=== PATIENT | male | born 1995 | race Caucasian/White ===

== ENCOUNTER 2017-04-28 04:45 | Emergency (ER) | payer SELFPAY ==
[~2017-04-28] VITALS: Ht 175.3 cm; Wt 61.4 kg
[~2017-04-28 04:45] MED LIST: SEROQUEL50 MG PO
[2017-04-28 04:47] VITALS: PULSE 100; TEMP 97.1
[2017-04-28] MEDS ORDERED: PERCOCET 325 MG1 TA2 PO (07:23)
[2017-04-28 08:23] VITALS: BP 127/76
== END 2017-04-28 08:25 | disposition home or self-care (01) ==
LOC: COL.ER 04:45
DX: S51.011A Laceration without foreign body of right elbow, initial encounter (principal); F17.210 Nicotine dependence, cigarettes, uncomplicated; Z23 Encounter for immunization; W00.0XXA Fall on same level due to ice and snow, initial encounter; Y92.009 Unspecified place in unspecified non-institutional (private) residence as the place of occurrence of the external cause
CPT/HCPCS: J0690; Q4050

== ENCOUNTER → 2018-05-13 | Emergency (ER) | payer SELFPAY ==
[~2018-05-13] VITALS: Ht 182.9 cm; Wt 75.0 kg
[~2018-05-13] MED LIST changes: +PERCOCET 325 MG1 TA2 PO
[2018-05-13 23:38] VITALS: TEMP 94.5
[2018-05-13 23:54] LABS: BASO # 0.1 (0.0-0.2); EOS # 0.2 (0.0-0.7); EOS % 1.9 % (0-4.0); GRAN # 3.1 (1.4-6.5); GRAN % 39.4 % (42.2-75.2); HEMATOCRIT 42.9 % (42.0-52.0); LYMPH # 3.9 (1.2-3.4); LYMPH % 49.4 % (20.0-51.0); MEAN CELL VOLUME 93 fl (80.0-100.0); MEAN CORPUSCULAR HEMOGLOBIN 30 pg (27.0-31.0); MEAN CORPUSCULAR HGB CONC 33 g/dl (33.0-37.0); MEAN PLATELET VOLUME 9.6 fl (7.4-10.4); MONO # 0.6 (0.1-0.6); MONO % 7.1 % (1.7-9.3); PLATELET COUNT 218 K/mm3 (130-400); RED BLOOD COUNT 4.62 M/mm3 (4.20-5.60)
[2018-05-13 23:58] LABS: INR 1.1 (0.8-3.0); PROTHROMBIN TIME 12.1 SECONDS (9.7-12.8)
[2018-05-14 00:04] LABS: ALBUMIN 4.2 gm/dL (3.5-5.0); BILIRUBIN,TOTAL 0.2 mg/dL (0.0-1.0); CALCIUM 8.3 mg/dL (8.4-10.2); CREATININE, serum 0.92 mg/dL (0.66-1.25); POTASSIUM 3.2 mmol/L (3.4-5.0); TOTAL PROTEIN 6.8 gm/dL (6.4-8.2)
[2018-05-14 00:18] VITALS: BP 122/89; PULSE 96
== END ==
LOC: COL.ER 23:38
PROVIDERS: Emergency Medicine
DX: S06.9X9A Unspecified intracranial injury with loss of consciousness of unspecified duration, initial encounter (principal); F10.129 Alcohol abuse with intoxication, unspecified; Y92.410 Unspecified street and highway as the place of occurrence of the external cause; Y08.89XA Assault by other specified means, initial encounter
CPT/HCPCS: J2250; J3010